=== PATIENT | male | born 1975 | race Caucasian/White ===

== ENCOUNTER 2018-07-29 12:00 | Emergency (ER) | payer SELFPAY ==
[~2018-07-29] VITALS: Ht 175.3 cm; Wt 69.0 kg
[2018-07-29] MEDS ORDERED: MORPHINE SULFATE 4 MG/ML CPJ (NOT FOR IM USE) IV STA (12:46)
[2018-07-29] MEDS ORDERED: SODIUM CHLORIDE 0.9% 1,000 ML IV ONE (12:46)
[2018-07-29] MEDS ORDERED: ONDANSETRON HCL 4MG/2ML INJ IV STA (12:46)
[2018-07-29 13:26] LABS: CHLORIDE 108 mEq/L (98-107)
[2018-07-29 13:27] LABS: PROTHROMBIN TIME 10.1 sec (9.1-11.1)
[2018-07-29] MEDS ORDERED: IOHEXOL-300 100 ML BOTTLE ONE (14:53)
[2018-07-29] MEDS ORDERED: KETOROLAC 30MG/ML VIAL IV ONE (17:00)
[2018-07-29 17:30] VITALS: BP 108/76
== END 2018-07-29 17:46 | disposition home or self-care (01) ==
LOC: ER 12:14
DX: S20.211A Contusion of right front wall of thorax, initial encounter (principal); S20.212A Contusion of left front wall of thorax, initial encounter; S16.1XXA Strain of muscle, fascia and tendon at neck level, initial encounter; R10.9 Unspecified abdominal pain; V03.99XA Pedestrian with other conveyance injured in collision with car, pick-up truck or van, unspecified whether traffic or nontraffic accident, initial encounter; Y93.55 Activity, bike riding; Y92.488 Other paved roadways as the place of occurrence of the external cause; S09.8XXA Other specified injuries of head, initial encounter
CPT/HCPCS: 36415; 70450; 71260; 72125; 74177; 80053; 83690; 85610; 96374; 96375; 99284; J2270; J2405; J7030; Q9967